=== PATIENT | male | born 1960 | race Caucasian/White ===

== ENCOUNTER 2017-09-13 08:24 | Day surgery (SDC) | payer OTHER ==
[2017-09-13] MEDS ORDERED: FENTAnyl 50 MCG/ML VIAL (10:11)
[2017-09-13] MEDS ORDERED: MIDAZOLAM 1 MG/ML 2 ML INJ (10:11)
== END 2017-09-13 11:03 | disposition home or self-care (01) ==
LOC: GIL 08:24
DX: Z12.11 Encounter for screening for malignant neoplasm of colon (principal); D12.0 Benign neoplasm of cecum; K62.1 Rectal polyp; K64.8 Other hemorrhoids; I10 Essential (primary) hypertension
CPT/HCPCS: 45380; 88305